=== PATIENT | male | born 1955 | race Caucasian/White ===

== ENCOUNTER 2020-07-13 10:14 | Inpatient (IN) | payer OTHER ==
[2020-07-13 10:30] VITALS: RESP 18; TEMP 98
[2020-07-13] MEDS ORDERED: IPRATROPIUM-ALBUTEROL 3 ML NEB INHALATION STA (10:52)
[2020-07-13] MEDS ORDERED: SODIUM CHLORIDE 0.9% 1,000 ML IV ONE (10:52)
--- NOTE | 2020-07-13 11:02 | ED ---
General Adult HPI - General Chief complaint: Upper Respiratory Infection Stated complaint: THROAT PAIN Time Seen by Provider: 07/13/20 10:41 Source: patient, RN notes reviewed Mode of arrival: ambulatory Limitations: no limitations - History of Present Illness Initial comments: This a 65-year-old male presents emergency Department chief complaint of dif ficulty swallowing. Patient states that over the last 6 weeks she's had increasing difficulty swallowing states that it's almost near impossible. Patient states there is some mild pain recently has lost his taste and smell was concerned. He did have outpatient testing which was negative. Denies any fevers or chills he doesn't shortness breath this is more chronic with his heavy smoking. Patient's had no prior throat esophageal issues - Related Data Allergies Allergy/AdvReac Type Severity Reaction Status Date / Time No Known Allergies Allergy Verified 07/13/20 10:25 Review of Systems ROS Statement: Those systems with pertinent positive or pertinent negative responses have been documented in the HPI. ROS Other: All systems not noted in ROS Statement are negative. Past Medical History Past Medical History: No Reported History History of Any Multi-Drug Resistant Organisms: None Reported Past Surgical History: No Surgical Hx Reported Past Psychological History: No Psychological Hx Reported Smoking Status: Current every day smoker Past Alcohol Use History: None Reported Past Drug Use History: None Reported General Exam Limitations: no limitations General appearance: alert, in no apparent distress Head exam: Present: atraumatic, normocephalic, normal inspection Eye exam: Present: normal appearance, PERRL, EOMI. Absent: scleral icterus, conjunctival injection, periorbital swelling ENT exam: Present: normal exam, normal oropharynx, mucous membranes moist, TM's normal bilaterally Neck exam: Present: normal inspection, full ROM. Absent: tenderness, meningismus, lymphadenopathy Respiratory exam: Present: wheezes. Absent: normal lung sounds bilaterally, respiratory distress, rales, rhonchi, stridor Cardiovascular Exam: Present: normal rhythm, tachycardia, normal heart sounds. Absent: systolic murmur, diastolic murmur, rubs, gallop, clicks GI/Abdominal exam: Present: soft, normal bowel sounds. Absent: distended, tenderness, guarding, rebound, rigid Neurological exam: Present: alert, oriented X3, CN II-XII intact, reflexes normal. Absent: motor sensory deficit Skin exam: Present: warm, dry, intact, normal color. Absent: rash Course Vital Signs 07/13/20 07/13/20 07/13/20 10:26 11:59 12:09 Temperature 98 F Pulse Rate 111 H 74 80 Respiratory 18 Rate Blood Pressure 128/78 O2 Sat by Pulse 99 Oximetry Medical Decision Making - Medical Decision Making 65-year-old presented for difficulty swallowing. Patient's found to have large lung mass with pressing against esophagus. Patient is a long-time heavy smoker. Patient will be admitted for oncology pulmonology and further management and treatment. - Lab Data Result diagrams: 07/13/20 11:11 07/13/20 11:11 Lab Results 07/13/20 07/13/20 07/13/20 Range/Units 11:11 11:11 11:20 WBC 5.2 (3.8-10.6) k/uL RBC 5.20 (4.30-5.90) m/uL Hgb 15.3 (13.0-17.5) gm/dL Hct 45.6 (39.0-53.0) % MCV 87.7 (80.0-100.0) fL MCH 29.4 (25.0-35.0) pg MCHC 33.5 (31.0-37.0) g/dL RDW 14.0 (11.5-15.5) % Plt Count 210 (150-450) k/uL MPV 8.2 Sodium 136 L (137-145) mmol/L Potassium 3.8 (3.5-5.1) mmol/L Chloride 96 L (98-107) mmol/L Carbon Dioxide 26 (22-30) mmol/L Anion Gap 14 mmol/L BUN 15 (9-20) mg/dL Creatinine 0.71 (0.66-1.25) mg/dL Est GFR (CKD-EPI)AfAm >90 (>60 ml/min/1.73 sqM) Est GFR (CKD-EPI)NonAf >90 (>60 ml/min/1.73 sqM) Glucose 97 (74-99) mg/dL Calcium 9.5 (8.4-10.2) mg/dL Total Bilirubin 2.7 H (0.2-1.3) mg/dL AST 57 (17-59) U/L ALT 54 H (4-49) U/L Alkaline Phosphatase 116 (38-126) U/L Total Protein 7.4 (6.3-8.2) g/dL Albumin 4.1 (3.5-5.0) g/dL Coronavirus (PCR) Not Detected (Not Detectd) Disposition Clinical Impression: Lung mass, Difficulty swallowing, COPD (chronic obstructive pulmonary disease) Disposition: ADMITTED IP TO THIS [facility] Condition: Serious Referrals: Nonstaff,Physician [REFERRING] - 1-2 days
[2020-07-13 11:30] LABS: ALT 54 U/L (4-49); AST 57 U/L (17-59); African American GFR (CKD) >90 (>60 ml/min/1.73 sqM); Albumin 4.1 g/dL (3.5-5.0); Alkaline Phosphatase 116 U/L (38-126); Anion Gap 14 mmol/L; Blood Urea Nitrogen 15 mg/dL (9-20); Calcium 9.5 mg/dL (8.4-10.2); Carbon Dioxide 26 mmol/L (22-30); Chloride 96 mmol/L (98-107); Glucose 97 mg/dL (74-99); Non-African American GFR(CKD) >90 (>60 ml/min/1.73 sqM); Potassium 3.8 mmol/L (3.5-5.1); Sodium 136 mmol/L (137-145); Total Bilirubin 2.7 mg/dL (0.2-1.3); Total Protein 7.4 g/dL (6.3-8.2)
[2020-07-13 11:57] LABS: HCT 45.6 % (39.0-53.0); HGB 15.3 gm/dL (13.0-17.5); MCH 29.4 pg (25.0-35.0); MCHC 33.5 g/dL (31.0-37.0); MCV 87.7 fL (80.0-100.0); Mean Platelet Volume 8.2; Platelet Count 210 k/uL (150-450); WBC 5.2 k/uL (3.8-10.6)
--- NOTE | 2020-07-13 11:59 | XR ---
EXAMINATION TYPE: XR chest 2V DATE OF EXAM: 07/13/2020 COMPARISON: NONE HISTORY: Shortness of breath TECHNIQUE: Frontal and lateral views of the chest are obtained. FINDINGS: Scattered senescent parenchymal changes noted. Hyperinflation compatible with COPD. There is a right suprahilar mass suspicious for malignancy until proven otherwise. Contrast is noted within right upper extremity venous structures from recent contrast CT of the neck Heart size is stable. Mediastinal structures are stable and grossly unremarkable. No evidence for hilar prominence. Degenerative changes dorsal spine. IMPRESSION: 1. There is a right suprahilar mass suspicious for malignancy until proven otherwise.
--- NOTE | 2020-07-13 12:05 | CT ---
EXAMINATION TYPE: CT soft tissue neck w con DATE OF EXAM: 07/13/2020 COMPARISON: None HISTORY: Throat swelling and difficulty swallowing for 3+ weeks. CT DLP: 281.1 mGycm CONTRAST: CT scan of the neck is performed with IV Contrast, patient injected with 100 mL of Isovue 300. Contrast enhanced CT of the neck was performed from the skull base through the lung apices. AIRWAY: The supraglottic, glottic, and subglottic portions of the airway appear patent and free of mass. SALIVARY GLANDS: The submandibular and parotid glands are free of mass or inflammatory process. THYROID GLAND: No nodules or masses seen. LYMPH NODES: No adenopathy seen greater than 1cm. LUNG APICES: There is a partially imaged right suprahilar/mediastinal mass felt to reflect malignancy until proven otherwise. There is a massive mediastinal adenopathy measuring at least 5 x 5.1 cm. The re is evidence of SVC syndrome with complete collapse of the superior vena cava and multiple chest wa ll collaterals noted. Pulmonary nodule is seen within the right upper lobe measuring 1.3 cm as well a s additional nodule left upper lobe measuring 1.6 cm. Smaller nodule seen posteriorly measuring 6 mm. Mass abuts the esophagus with loss of fat plane along the right margin of the esophagus. OTHER: Vascular structures are patent. No significant degenerative change of the cervical spine. N o abscess seen. IMPRESSION: 1. Dedicated CT of the chest recommended for partially imaged right suprahilar/mediastinal malignancy with scattered pulmonary nodules. There is evidence of SVC syndrome. Mass also abuts the right later al margin of the esophagus. 2. No definite neck pathology identified.
[2020-07-13] MEDS ORDERED: NALOXONE 0.4 MG/ML 1 ML VIAL IV PRN (12:15)
[2020-07-13] MEDS ORDERED: ONDANSETRON 4 MG/2 ML VIAL IVP PRN (12:15)
[2020-07-13 12:30] LABS: Band Neutrophils % 1 %; Basophils # (M) 0.05 k/uL (0-0.2); Eosinophils # (M) 0.26 k/uL (0-0.7); Lymphocytes # (M) 1.35 k/uL (1.0-4.8); Monocytes # (M) 0.62 k/uL (0-1.0); Neutrophils % (M) 55 %; Nucleated Red Blood Cells 0 /100 WBC (0-0); Total Cells Counted 100
[2020-07-13] MEDS ORDERED: NICOTINE 21MG/24HR PATCH TRANSDERM SCH (12:30)
[2020-07-13] MEDS ORDERED: RX INFO: IV CONTRAST WAS GIVEN 1 EACH MISC MISCELLANE PRN (13:58)
--- NOTE | 2020-07-13 14:03 | P.CNPUL ---
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 The patient was having progressive worsening in swallowing and he got to the point where he was unable to swallow appropriately and his condition has been getting worse over this past 3 months. He has lost around 30 pounds and he was very much concerning for that reason he came into the hospital. He has no fever. No chills. He has some chronic exertional dyspnea. No hemoptysis. No chest pain. No neck pain. No history of any stroke. Chest x-ray showed a right suprahilar mass which was highly suggestive of underlying lung mass or malignancy. CAT scan of the neck was also doneAnd the CAT scan showed partially imaged right suprahilar mass which is felt to be reflect an underlying malignancy. The mass is large and is extending to the cava which seems to be plugged and the patient has some collaterals. The patient also has a pulmonary nodule 1.3 cm peripherally and addition to that there is another nodule 1.6 cm on the left. Smaller nodule was also seen in the lungs. The mass abuts the esophagus with a loss of the fat plane along the right margin of the esophagus. The mass based on this CAT scan is estimated to be at least 5 cm in size. Altered mentation. No syncope. No falls. His blood work essentially within normal limits. His COVID 19 testing was also negative. Review of Systems Constitutional: Reports fatigue, Reports weakness, Reports weight loss Eyes: denies as per HPI, denies blurred vision, denies bulging eye, denies decreased vision, denies diplopia, denies discharge, denies dry eye, denies irritation, denies itching, denies pain, denies photophobia, denies loss of peripheral vision, denies loss of vision, denies tunnel vision/blind spots Ears: deny: decreased hearing, ear discharge, earache, tinnitus Ears, nose, mouth and throat: Reports as per HPI Breasts: absent: as per HPI, gynecomastia Cardiovascular: Reports decreased exercise tolerance, Reports dyspnea on exertion Respiratory: Reports cough, Reports dyspnea Gastrointestinal: Reports as per HPI (Physical therapy and swallowing and dysphagia with secondary weight loss) Genitourinary: Reports as per HPI Musculoskeletal: Reports as per HPI Musculoskeletal: absent: ankle pain, ankle stiffness, ankle swelling Integumentary: Reports as per HPI Neurological: Reports as per HPI, Reports weakness Endocrine: Reports as per HPI Hematologic/Lymphatic: Reports as per HPI Allergic/Immunologic: Reports as per HPI Past Medical History Past Medical History: No Reported History, COPD History of Any Multi-Drug Resistant Organisms: None Reported Past Surgical History: No Surgical Hx Reported Past Psychological History: No Psychological Hx Reported Smoking Status: Current every day smoker Past Alcohol Use History: None Reported Past Drug Use History: None Reported Medications and Allergies Home Medications Medication Instructions Recorded Confirmed Type No Known Home Medications 07/13/20 07/13/20 History Allergies Allergy/AdvReac Type Severity Reaction Status Date / Time No Known Allergies Allergy Verified 07/13/20 12:37 Physical Exam Vitals: Vital Signs Temp Pulse Resp BP Pulse Ox 07/13/20 13:00 78 18 110/81 95 07/13/20 12:09 80 07/13/20 11:59 74 07/13/20 10:26 98 F 111 H 18 128/78 99 Intake and Output 07/12/20 07/13/20 07/13/20 22:59 06:59 14:59 Other: Weight 66.224 kg The patient appeared well nourished and normally developed. Vital signs as documented. Head exam is unremarkable. No scleral icterus or corneal arcus noted. Neck is without jugular venous distension, thyromegaly, or carotid bruits. Carotid upstrokes are brisk bilaterally. Lungs examination reveals diminished breath sounds bilaterally along with scattered expiratory wheezes throughout the lung muller bilaterally. Cardiac exam reveals the PMI to be normally sized and situated. Rhythm is regular. First and second heart sounds normal. No murmurs, rubs or gallops. Abdominal exam reveals normal bowel sounds, no masses, no organomegaly and no aortic enlargement. Extremities are nonedematous and both femoral and pedal pulses are normal.Examination of the skin revealed no evidence of significant rashes, suspicious appearing nevi or other concerning lesions.Neurologically, the patient is awake and alert and the patient does not have any focal neurological deficit. Cranial nerves are essentially intact. Results - Laboratory Findings CBC and BMP: 07/13/20 11:11 07/13/20 11:11 Abnormal lab findings: Abnormal Labs 03/28/21 11:11 Sodium 136 L Chloride 96 L Total Bilirubin 2.7 H ALT 54 H - Diagnostic Findings Chest x-ray: image reviewed Assessment and Plan Plan: 1 right suprahilar mass which is highly suggestive underlying malignancy. The patient presented to the hospital because of dysphagia and difficulty swallowing and he has lost considerable amount of weight. Chest x-ray shows a right suprahilar mass. CAT scan of the neck that was done shows partially the right suprahilar mass which is estimated to be at least 5 cm in size and there is also nodules bilaterally in addition to the mass extending to the SVC causing some mass effect and there is also some mass effect on the esophagus. Nevertheless, the patient does not have any signs and symptoms of SVC syndrome. 2 COPD 3 history of chronic smoking and the patient smokes A pack of cigarettes a day 4 chronic dysphagia along with weight loss secondary to above Plan I reviewed the chest x-ray in the CAT scan of the neck. This patient will need a CAT scan of his chest with contrast in addition to accurately characterize the right lung mass. Highly suspicious for malignancy, probably metastatic at this stage causing mass effect on the SVC and esophagus. Condition is currently stable and this workup can be also done on outpatient basis. I will suggest completing the CAT scan images and the patient can be discharged home today and I'm going to give him a very short-term follow-up within the next few days for this patient to come and have his endoscopy done on outpatient basis for tissue diagnosis. Highly suspicious for small cell lung cancer at this point in time. Also, smoking cessation counseling was not. The patient will be given Ventolin HFA on a prednisone burst taper for increased dyspnea chest tightness and wheezing. If Emergency services is agreeable, we'll release this patient home and I'm going to contact him immediately within next few days to set him up for a outpatient bronchoscopy.
--- NOTE | 2020-07-13 14:37 | P.HPIM ---
History of Present Illness H&P Date: 07/13/20 Chief Complaint: dysphagia 65-year-old male with hx of smoking around 2 packs of cigarettes on a daily basis presented with 2 months history of progressive worsening in swallowing, initially to solids and now to liquids. He has lost around 30 pounds. No fever. No chills. He has some chronic exertional dyspnea as well as sob and wheezing when laying on his right side. No hemoptysis. No chest pain. No neck pain. No nausea or vomiting. No abdominal pain, diarrhea. No syncope or falls. Labs in the ER were essentially within normal limits, chest x-ray showed a right suprahilar mass which was highly suggestive of underlying lung mass or malignancy. CAT scan of the neck showed partially imaged right suprahilar mass which is felt to be reflect an underlying malignancy. The mass is large and is extending to the cava which seems to be plugged and the patient has some collaterals. The patient also has a pulmonary nodule 1.3 cm peripherally and addition to that there is another nodule 1.6 cm on the left. The mass abuts the esophagus with a loss of the fat plane along the right margin of the esophagus. The mass based on this CAT scan is estimated to be at least 5 cm in size. His COVID 19 testing was also negative. Review of Systems Complete review of system performed, pertinent positives per HPI, otherwise negative. Past Medical History Past Medical History: No Reported History, COPD History of Any Multi-Drug Resistant Organisms: None Reported Past Surgical History: No Surgical Hx Reported Past Psychological History: No Psychological Hx Reported Smoking Status: Current every day smoker Past Alcohol Use History: None Reported Past Drug Use History: None Reported Medications and Allergies Home Medications Medication Instructions Recorded Confirmed Type Albuterol Sulfate [Proair Hfa] 1 - 2 puff INHALATION Q6HR PRN 30 07/13/20 Rx Days #1 inhaler Nicotine 21Mg/24Hr Patch [Habitrol] 1 patch TRANSDERM DAILY 30 Days 07/13/20 Rx #30 patch methylPREDNISolone Dose Pack 4 mg PO DIRECTED #21 package 07/13/20 Rx [Medrol Dose Pack] Allergies Allergy/AdvReac Type Severity Reaction Status Date / Time No Known Allergies Allergy Verified 07/13/20 12:37 Physical Exam Vitals: Vital Signs Temp Pulse Resp BP Pulse Ox 07/13/20 13:00 78 18 110/81 95 07/13/20 12:09 80 07/13/20 11:59 74 07/13/20 10:26 98 F 111 H 18 128/78 99 Intake and Output 07/12/20 07/13/20 07/13/20 22:59 06:59 14:59 Other: Weight 66.224 kg Constitutional: No acute distress, conversant, pleasant Eyes:Anicteric sclerae, moist conjunctiva, no lid-lag, PERRLA, ENMT: Oropharynx clear, no erythema, exudates Neck: Supple, FROM, no masses, or JVD, No carotid bruits, No thyromegaly Lungs: RIght sided wheezing and rhonchi. Clear to percussion, Normal respiratory effort, no accessory muscle use Cardiovascular: Heart regular in rate and rhythm, No murmurs, gallops, or rubs, No peripheral edema Abdominal: Soft, Nontender, no guarding, rebound or rigidity, Normoactive bowel sounds, No hepatomegaly, No splenomegaly, No palpable mass Skin: Normal temperature, tone, texture, turgor, no induration, No subcutaneous nodules, No rash, lesions, No ulcers Extremities: No digital cyanosis, No clubbing, Pedal pulses intact and symmetr ical, Radial pulses intact and symmetrical, No calf tenderness Psychiatric: Alert and oriented to person, place and time, appropriate affect, intact judgement Neuro: Muscles Strength 5/5 in all 4 extremities, Sensation to light touch grossly present throughout, Cranial nerves II-XII grossly intact, no focal sensory deficits Results CBC & Chem 7: 07/13/20 11:11 07/13/20 11:11 Labs: Abnormal Lab Results - Last 24 Hours (Table) 07/13/20 Range/Units 11:11 Sodium 136 L (137-145) mmol/L Chloride 96 L (98-107) mmol/L Total Bilirubin 2.7 H (0.2-1.3) mg/dL ALT 54 H (4-49) U/L Assessment and Plan Plan: Right lung mass Seen by pulm Will need chest CT with contrast, will order Sob Will order albuterol and steroids Smoking Counselled to quid Nicotine patch Will be discharged, cleared by pulmonary service. Will follow in the office for bronchoscopy.
--- NOTE | 2020-07-13 14:41 | P.DS ---
Providers Date of admission: 07/13/20 12:15 Expected date of discharge: 07/13/20 Attending physician: Ladarius Pinto Consults: 07/13/20 12:15 Consult Physician Urgent Consulting Provider: Chris Zepeda Consult Reason/Comments: Lung mass Do you want consulting provider notified?: Yes 07/13/20 12:16 Consult Physician Urgent Consulting Provider: Nicholas Isidro Consult Reason/Comments: Lung mass Do you want consulting provider notified?: Yes Primary care physician: Stated None Hospital Course: 65-year-old male with hx of smoking around 2 packs of cigarettes on a daily basi s, has not been seeing any physicians, presented with 2 months history of progressive worsening in swallowing, initially to solids and now to liquids. He has lost around 30 pounds. No fever. No chills. He has some chronic exertional dyspnea as well as sob and wheezing when laying on his right side. No hemoptysis. No chest pain. No neck pain. No nausea or vomiting. No abdominal pain, diarrhea. No syncope or falls. Labs in the ER were essentially within normal limits, chest x-ray showed a right suprahilar mass which was highly suggestive of underlying lung mass or malignancy. CAT scan of the neck showed partially imaged right suprahilar mass which is felt to be reflect an underlying malignancy. The mass is large and is extending to the cava which seems to be plugged and the patient has some collaterals. The patient also has a pulmonary nodule 1.3 cm peripherally and addition to that there is another nodule 1.6 cm on the left. The mass abuts the esophagus with a loss of the fat plane along the right margin of the esophagus. The mass based on this CAT scan is estimated to be at least 5 cm in size. His COVID 19 testing was also negative. Patient was seen by dr. Zepeda in the ER, he was cleared for discharge. CT chest with contrast will be ordered to be done on an outpatient basis. He will also be given prescriptions for nicotine patch as well as albuterol and steroids for chronic sob. Will need folllow up with pulm and new PCP. Patient Condition at Discharge: Serious Plan - Discharge Summary New Discharge Prescriptions: New Nicotine 21Mg/24Hr Patch [Habitrol] 1 patch TRANSDERM DAILY 30 Days #30 patch methylPREDNISolone Dose Pack [Medrol Dose Pack] 4 mg PO DIRECTED #21 package Albuterol Sulfate [Proair Hfa] 1 - 2 puff INHALATION Q6HR PRN 30 Days #1 inhaler PRN Reason: Shortness Of Breath Discharge Medication List Albuterol Sulfate [Proair Hfa] 1 - 2 puff INHALATION Q6HR PRN 30 Days #1 inhaler 07/13/20 [Rx] Nicotine 21Mg/24Hr Patch [Habitrol] 1 patch TRANSDERM DAILY 30 Days #30 patch 07/13/20 [Rx] methylPREDNISolone Dose Pack [Medrol Dose Pack] 4 mg PO DIRECTED #21 package 07/13/20 [Rx] Follow up Appointment(s)/Referral(s): Parul Veronica MD [STAFF PHYSICIAN] - 1 Week Nonstaff,Physician [REFERRING] - 1-2 days Chris Zepeda MD [STAFF PHYSICIAN] - 1 Week
[2020-07-13 15:16] VITALS: BP 112/69; PULSE 68
== END 2020-07-13 15:19 | disposition home or self-care (01) | DRG 204 ==
LOC: EC 10:14 → 5NMEDONC 12:15
PROVIDERS: ADMIT Internal Medicine; ATTEND Internal Medicine
DX: R91.8 Other nonspecific abnormal finding of lung field (principal); F17.210 Nicotine dependence, cigarettes, uncomplicated; Z20.822 Contact with and (suspected) exposure to COVID-19; R13.10 Dysphagia, unspecified; J44.9 Chronic obstructive pulmonary disease, unspecified
CPT/HCPCS: 36415; 70491; 71046; 80053; 85025; 87635; 94640; 96360; 99285

== ENCOUNTER → 2020-07-14 | Outpatient (CLI) | payer OTHER ==
[2020-07-14 11:37] LABS: African American GFR (CKD) >90 (>60 ml/min/1.73 sqM); Blood Urea Nitrogen 14 mg/dL (9-20); Non-African American GFR(CKD) >90 (>60 ml/min/1.73 sqM)
--- NOTE | 2020-07-14 12:51 | CT ---
EXAMINATION TYPE: CT chest w con DATE OF EXAM: 07/14/2020 COMPARISON: HISTORY: Rapid weight loss...>30 pounds in less than 3 weeks and lung mass CT DLP: 232.90 mGycm Automated exposure control for dose reduction was used. CONTRAST: CT scan of the chest is performed with IV Contrast, patient injected with 100 ml mL of Isovue 300. FINDINGS: LUNGS: There is a right suprahilar mass identified that with estimated measurement of 5.4 x 3.7 cm. T here is a narrowing of the right lower lobe bronchus measuring up to 3.5 mm. Mass extends cranially. There is a 1.8 cm spiculated nodule right upper lobe with adjacent satellite nodules. Peripheral 1.2 cm right upper lobe nodule noted as well with additional scattered right upper lobe satellite nodules . The left lung is clear. MEDIASTINUM: There is massive mediastinal adenopathy measuring 5.7 x 5.0 x 9.4 cm in length extending from the superior mediastinum along the right paratracheal region up to the level of the hilum. Ther e is nonvisualization of the superior vena cava with multiple chest wall collaterals compatible with SVC syndrome. There is right hilar adenopathy identified measuring 2.5 cm. Subcarinal adenopathy mynor ures 2 cm. UPPER ABDOMEN: Metastatic disease is noted to both adrenal glands. The right adrenal gland measures 5 .4 cm and the left adrenal gland measures 6.7 cm. Hypoattenuating masses are seen of the spleen felt to reflect additional metastatic disease with the lesion measuring up to [address] of the abdomen and pelvis. There is also mass in the lesion to head which may reflect adenopathy mynor ures 3.8 x 3.6 cm. OTHER: No additional significant abnormality is seen. IMPRESSION: 1. Malignant right hilar/right suprahilar mass with cranial extension and multiple satellite pulmonar y nodules right upper lobe. 2. Massive mediastinal adenopathy resulting in SVC syndrome. 3. Metastatic disease to the adrenal glands and spleen. 4. Mass area within the region of the pancreatic head may reflect adenopathy. Dedicated CT of the abd omen and pelvis is advised. Recommend PET/CT.
== END | disposition home or self-care (01) ==
LOC: RADCTMAIN 10:51
PROVIDERS: ATTEND Internal Medicine
DX: C34.11 Malignant neoplasm of upper lobe, right bronchus or lung (principal); C79.70 Secondary malignant neoplasm of unspecified adrenal gland; R91.8 Other nonspecific abnormal finding of lung field
CPT/HCPCS: 82565; 84520; 71260; 36415; Q9967

== ENCOUNTER 2020-07-16 11:16 | Day surgery (SDC) | payer SELFPAY ==
[2020-07-15 10:21] VITALS: BMI 22.8
[~2020-07-16 11:16] MED LIST: ALBUTEROL NEB (CONC) 2.5 MG/0.5 ML INHALATION ONE; LACTATED RINGERS 1,000 ML IV SCH; LIDOCAINE 2% (PF) 20 MG/ML 5 ML VIAL INHALATION ONE; LIDOCAINE VISCOUS 300 MG/15 ML CUP MUCOUS MEM ONE; SODIUM CHLORIDE 0.9% 1,000 ML IV SCH
[2020-07-16] MEDS ORDERED: LIDOCAINE 1% (10MG/ML) FOR IV START INTRADERMA ONE (11:46)
[2020-07-16] MEDS ORDERED: PROPOFOL 10 MG/ML 20 ML VIAL IV ONE (12:26)
[2020-07-16] MEDS ORDERED: PHENYLEPHRINE-0.9% NACL SYG 1,000 MCG/10 ML SYRINGE ONE (12:26)
[2020-07-16] MEDS ORDERED: MIDAZOLAM 2 MG/2 ML VIAL ONE (12:26)
[2020-07-16] MEDS ORDERED: SUCCINYLCHOLINE CHLORIDE 100 MG/5 ML SYR IV ONE (12:26)
[2020-07-16] MEDS ORDERED: KETAMINE 10 MG/ML 20 ML VIAL ONE (12:26)
[2020-07-16] MEDS ORDERED: fentaNYL (PF) 50 MCG/ML 2 ML AMP ONE (12:26)
[2020-07-16] MEDS ORDERED: LIDOCAINE 1% INJ 10MG/ML (20 ML MDV) ONE (12:26)
[2020-07-16 13:21] VITALS: TEMP 97.5
--- NOTE | 2020-07-16 13:21 | P.PCN ---
Date of Procedure: 07/16/20 Preoperative Diagnosis: mediastinal mass Postoperative Diagnosis: 1. Mediastinal mass 2. Extensive endobronchial involvement of the right upper lobe/bronchus intermedius causing near complete occlusion of the bronchus intermedius (endobronchial tumor and extrinsic compression). 3. Extrinsic compression of the bronchus intermedius, (endobronchial tumor and extrinsic compression). (This is a critically airway with a airway diameter has been reduced bilateral 95% of its normal size) Procedure(s) Performed: Flexible bronchoscopoy Airway inspection Transbronchial needle aspirate of the endobronchial tumor in the bronchus intermedius Endobronchial biopsy of the tumor and the bronchus intermedius Endobronchial brushing of the tumor and the bronchus intermedius BAL of the tumor and the bronchus intermedius Anesthesia: HAILEE Surgeon: Chris Zepeda Estimated Blood Loss (ml): 0 Pathology: other Condition: stable Disposition: same day Operative Findings: This procedure was done in the endoscopy suite. The procedure was done under general anesthesia. The intubation process was done by BOTTOMING MACHINE OPERATOR. The patient was adequately oxygenated and ventilated. After securing the airway, the flexible bronchoscope was introduced and orotracheal tube and was advanced into the lower trachea. The tip of the orotracheal tube was seen around 3 cm above the phuc. The distal right lateral wall of the trachea was mildly compressed extrinsically and there was some tracheal wall irregularities. The bronchoscope was noted right mainstem bronchus and the right upper lobe bronchus origin was compressed. There airway was mildly involved with endobronchial tumor and the endobronchial involvement got worse as the bronchoscope was advanced to the right upper lobe bronchus and bronchus intermedius. The right upper lobe bronchus origin was occluded with endobronchial tumor. The bronchus intermedius was severely narrowed and the caliber was reduced probably to 5% of its normal dimension. This was related to extrinsic compression and endobronchial tumor involvement. The phuc between the right upper lobe and bronchus intermedius was also severely involved with endobronchial tumor. The tumor surface was vascular and irregular. I was able to pass the bronchoscope through the bronchus intermedius and right middle lobe and the various segments of the right lower lobe was visualized. Examination of the left side was within normal limits and the left mainstem bronchus and the left upper lobe and the left lower lobe bronchus along with various 10 segments were patent. At this point, the bronchoscope was moved to the right side and most of the biop sies were obtained in the area bronchus intermedius especially right after the uptake of the right upper lobe bronchus. This was heavily infiltrated with tumor. Transbronchial needle aspirates was done in 2 places were obtained using a 21-gauge histology needle. Following that, endobronchial biopsies of the area was obtained and multiple biopsies were taken with some bleeding that was controlled locally without any intervention. At the completion of the procedure, informed of the bronchial brushings and a bronchioloalveolar lavage of the bronchus intermedius was done where a total of 60 mL of fluid was infused infused and 20 mL of bloody aspirate was obtained. at this point in time, there was some bloody secretions within the airway and have regular suctioning was done. Bronchoscope was ultimately removed. Patient was extubated and transferred to recovery This patient is a critically airway with severe narrowing of the bronchus intermedius. We'll be awaiting biopsy results. We'll discuss treatment options based on the findings. We'll extubate hematology oncology immediately regarding the situation with impending obstruction of the bronchus intermedius.
--- NOTE | 2020-07-16 13:40 | XR ---
EXAMINATION TYPE: XR chest 1V DATE OF EXAM: 07/16/2020 COMPARISON: 07/13/2020 INDICATION: Bronchial biopsy post bronchoscopy TECHNIQUE: Single frontal view of the chest is obtained. FINDINGS: The heart size is normal. The mediastinum is widened. No pneumothorax is evident. The pulmonary vasculature is normal. The lungs are clear. IMPRESSION: 1. No pneumothorax post bronchoscopy. 2. Widening of the mediastinum
[2020-07-16 14:34] VITALS: PULSE 78; RESP 18
[2020-07-16 14:35] VITALS: BP 117/78
== END 2020-07-16 14:51 | disposition home or self-care (01) ==
LOC: ORWHC2ENDO 11:16
PROVIDERS: ATTEND Internal Medicine Critical Care Medicine
DX: F17.210 Nicotine dependence, cigarettes, uncomplicated (principal); J44.9 Chronic obstructive pulmonary disease, unspecified; Z85.118 Personal history of other malignant neoplasm of bronchus and lung; Z97.2 Presence of dental prosthetic device (complete) (partial)
CPT/HCPCS: 88104; 88108; 88305; 88173; 88342; 88341; 71045; 31629; 31633; 31623; 31624; J2250; J2001; J3010; J2370; J0330; J2704; 31625

== ENCOUNTER 2020-07-21 12:09 | Day surgery (SDC) | payer SELFPAY ==
[2020-07-21 12:25] VITALS: RESP 16; TEMP 98.1
[2020-07-21] MEDS ORDERED: LACTATED RINGERS 1,000 ML IV ONE (12:34)
[2020-07-21] MEDS ORDERED: LACTATED RINGERS 1,000 ML IV SCH (12:34)
[2020-07-21] MEDS ORDERED: PROPOFOL 10 MG/ML 20 ML VIAL IV ONE (13:00)
[2020-07-21] MEDS ORDERED: LIDOCAINE 1% INJ 10MG/ML (20 ML MDV) ONE (13:00)
[2020-07-21 13:58] VITALS: BP 123/82; PULSE 111
--- NOTE | 2020-07-21 14:06 | P.GSHP ---
History of Present Illness H&P Date: 07/21/20 Chief Complaint: Malnutrition This is a 65-year-old male recently diagnosed cancer. Patient is requiring PEG tube placement for malnutrition. Past Medical History Past Medical History: Cancer, COPD, Skin Disorder Additional Past Medical History / Comment(s): new dx of lung cancer, SOB with cough starting 2 weeks ago, dry skin, "I have no taste and having difficulty getting things down my throat but can get liquids and ensure down" History of Any Multi-Drug Resistant Organisms: None Reported Past Surgical History: No Surgical Hx Reported Past Anesthesia/Blood Transfusion Reactions: No Reported Reaction Additional Past Anesthesia/Blood Transfusion Reaction / Comment(s): never had anesthesia Smoking Status: Current every day smoker - Past Family History Mother Family Medical History: Cancer Additional Family Medical History / Comment(s): lung cancer Medications and Allergies Home Medications Medication Instructions Recorded Confirmed Type No Known Home Medications 07/15/20 07/21/20 History Allergies Allergy/AdvReac Type Severity Reaction Status Date / Time No Known Allergies Allergy Verified 07/21/20 12:26 Surgical - Exam Vital Signs Temp Pulse Resp BP Pulse Ox 98.1 F 111 H 16 115/75 96 07/21/20 12:24 07/21/20 12:24 07/21/20 12:24 07/21/20 12:24 07/21/20 12:24 - General well developed, well nourished, no distress - Eyes PERRL - ENT normal pinna - Neck no masses - Respiratory normal expansion - Cardiovascular Rhythm: regular - Abdomen Abdomen: soft, non tender Assessment and Plan Assessment: Malnutrition. We'll place PEG tube.
--- NOTE | 2020-07-21 14:07 | P.OP ---
Date of Procedure: 07/21/20 Preoperative Diagnosis: Malnutrition Postoperative Diagnosis: Malnutrition Procedure(s) Performed: EGD with PEG tube placement Anesthesia: MAC Surgeon: Houston Sotomayor Pathology: none sent Condition: stable Disposition: PACU Description of Procedure: The patient's placed on the endoscopy table in the lateral position. He received IV sedation. The gastroscope placed oropharynx passed in the esophagus into the stomach. The scope was then placed through the pylorus. The first and second portion of the duodenum appeared normal. Scope was brought back and stomach and the stomach was insufflated with air. A suitable light reflux seen the anterior abdominal wall. The skin localized 1% local Xylocaine. A skin incision made with 11 blade. The needles in place and stomach under direct visualization. The needle was snared and then the wire was placed in the wire was snared and brought the oropharynx. The patient is placed overtop the wire and brought down to the stomach. PEG tube was then pulled through the abdominal wall and the one-piece bolster was placed at 3 cm phu. Patient tolerated procedure well was sent to recovery room stable condition.
== END 2020-07-21 14:46 | disposition home or self-care (01) ==
LOC: ORWHC2ENDO 12:09
PROVIDERS: ATTEND Surgery
DX: E46 Unspecified protein-calorie malnutrition (principal); J44.9 Chronic obstructive pulmonary disease, unspecified; F17.210 Nicotine dependence, cigarettes, uncomplicated; Z85.118 Personal history of other malignant neoplasm of bronchus and lung; Z80.1 Family history of malignant neoplasm of trachea, bronchus and lung
CPT/HCPCS: 43246; J2001; J2704; B4087

== ENCOUNTER → 2020-07-28 | Outpatient (CLI) | payer OTHER ==
--- NOTE | 2020-07-28 22:49 | MR ---
EXAMINATION TYPE: MR brain wo/w con DATE OF EXAM: 07/28/2020 COMPARISON: NONE HISTORY: Advanced stage newly diagnosed Lung cancer, evaluate for metastatic disease. TECHNIQUE: Multiplanar, multisequence images of the brain and brainstem is performed without and with IV contras t, utilizing 7 mL intravenous Gadavist . FINDINGS: Diffusion weighted images demonstrate no evidence of a recent infarct . There is mild to m oderate diffuse ventricular and sulcal prominence. Some T2 hyperintensity in the periventricular whit e matter with additional scattered tiny foci in the deep white matter. Midline structures demonstrate normal morphology. The craniocervical junction appears within normal limits. Post contrast images demonstrate metastatic disease. For reference there is ring-enhancing metastatic 7 x 8 x 6 mm focus axial image 50 and sagittal image 55 right frontal lobe with surrounding vasogeni c edema. There is additional 6 x 5 x 6 mm left parietal focus axial image 55 and sagittal image 37 le ft frontal lobe. There is 7 x 8 x 8 mm left cerebellar ring-enhancing metastatic lesion axial image 2 1 and sagittal image 32. Additional focus noted inferior right cerebellum axial image 11 along with p unctate focus inferior peripheral left cerebellar hemisphere axial image 14. There is additional enha ncing metastatic lesion high right frontal lobe axial image 64. Dural venous sinuses appear patent. The visualized sinuses are clear and the globes are intact. IMPRESSION: Confirmation of brain metastatic disease, at least 6 distinct lesions noted on this study as detailed above.
== END | disposition home or self-care (01) ==
LOC: RADMRIMAIN 19:39
PROVIDERS: ATTEND Radiology Radiation Oncology
DX: C79.31 Secondary malignant neoplasm of brain (principal); C34.90 Malignant neoplasm of unspecified part of unspecified bronchus or lung
CPT/HCPCS: 70553; A9585

== ENCOUNTER → 2020-08-01 | Outpatient (CLI) | payer OTHER ==
--- NOTE | 2020-08-04 13:00 | PE ---
EXAMINATION TYPE: PET CT fusion skull to thigh DATE OF EXAM: 08/01/2020 COMPARISON: Chest CT July 14, 2020 HISTORY: Newly diagnosed right-sided lung cancer metastatic to brain. TECHNIQUE: Following the intravenous administration of 12.1 mCi of F-18 FDG, whole body images are p erformed from the skull base to the midthigh. Images are reviewed on the computer in the coronal, ax ial, and sagittal planes. Reconstructed rotating images are created on independent workstation and r eviewed on the computer. A localization and attenuation correction CT is performed in conjunction w ith the PET scan. Blood glucose level equals 90. SCAN: Initial Scan FINDINGS: SKULL BASE AND NECK: No areas of suspicious hypermetabolic uptake. CHEST, MEDIASTINUM, AND HILAR REGION: Mild underlying emphysematous change there is redemonstrated. P rior visualized 1.8 cm spiculated nodule periphery right upper lobe shows interval near complete reso lution with some scarlike opacity and smaller 4 mm nodularity centrally axial image 73. Smaller subce ntimeter nodule medial to this on prior study axial image 18 shows diminished size. There is improved nodular consolidation medial right upper lobe axial image 68, this is ametabolic. New and more promi nent scattered areas of groundglass opacity and groundglass nodules in the right upper to mid lung ce ntrally and posteriorly are identified. All areas noted ametabolic. There is however confluent right hilar mass with suprahilar extension occluding the right upper lobe bronchus and encasing the right mainstem bronchus, this surrounds significant portion of the SVC with indistinct fat plane, it has mild hypermetabolic uptake, the max SUV is 3.77 on axial image 83 right aspect. It is difficult to accurately measure due to confluent appearance. It extends into the anter ior superior mediastinum above the three-vessel takeoff up to level of inferior aspect of the thyroid gland. No definitive left-sided abnormal hypermetabolic uptake. ABDOMEN AND PELVIS: Bilateral slightly hypermetabolic adrenal masses, right adrenal mass measures rou ghly 4.3 x 2.9 cm image 133, max SUV is 3.5. Left adrenal mass measures roughly 5.7 x 3.6 cm axial im age 132, max SUV is 4.35. There is hypermetabolic mass or adenopathy near pancreatic duodenal groove measuring approximately 2. 7 x 2.6 cm axial image 140, max SUV is 5.17. There is redemonstration of 2-3 mildly hypermetabolic hypodense lesions in the spleen largest measure s 2.5 cm long axis axial image 120. The max SUV is 3.17. Some focal increased uptake right colonic loop axial image 172 is nonspecific, no definitive CT corre late. Normal excretion. OSSEOUS STRUCTURES: No areas of abnormal hypermetabolic uptake. OTHER CT: Small pericardial effusion. PEG tube is present. Gallbladder assess distended margins. Incidental there are 2 small thin-walled c yst posteriorly midpole level right kidney. Mildly enlarged prostate consistent with BPH. Mild calcified plaque of the aorta extends into branch vessels. Mild facet arthropathy lower lumbar l evels. Moderate axial joint space loss both hips. IMPRESSION: Confirmation of known advanced lung cancer with right hilar mass showing mediastinal inv asion. Changing nodularity and groundglass opacities in the right lung favor infectious etiology. Cor relate clinically. There are bilateral adrenal metastatic lesions and metastatic lesion to the anteri or pancreatic duodenal groove. Suspect splenic metastatic disease.
== END | disposition home or self-care (01) ==
LOC: RADPETMAIN 11:55
PROVIDERS: ATTEND Radiology Radiation Oncology
DX: C34.11 Malignant neoplasm of upper lobe, right bronchus or lung (principal); C79.71 Secondary malignant neoplasm of right adrenal gland; C79.72 Secondary malignant neoplasm of left adrenal gland
CPT/HCPCS: 78815; A9552